=== PATIENT | male | born 1995 | race Caucasian/White ===

== ENCOUNTER 2019-07-12 09:48 | Emergency (ER) | payer OTHER ==
[2019-07-12 09:53] VITALS: BP 111/68; PULSE 80; TEMP 98.2
[2019-07-12 10:04] VITALS: RESP 16
--- NOTE | 2019-07-12 10:14 | ED ---
URI HPI - General Chief Complaint: Upper Respiratory Infection Stated Complaint: fever/cough Time Seen by Provider: 07/12/19 09:58 Source: patient, RN notes reviewed Mode of arrival: ambulatory Limitations: no limitations - History of Present Illness Initial Comments: 23-year-old male presents emergency Department chief complaint of fever cough congestion. Patient states she's had fever at home he has not taken any recent, Motrin since 3 AM this morning. Patient states he feels achy had the toe. Patient has no difficulty breathing at this time. Patient was seen by his PCP who sent him here for further evaluation possible COVID-19 testing. Patient denies any chest pain denies any neck pain or neck stiffness does complain of mild headache. Patient has no significant past medical history. Patient is not taking medications. No prior surgeries. - Related Data Allergies Allergy/AdvReac Type Severity Reaction Status Date / Time No Known Allergies Allergy Verified 07/12/19 09:53 Review of Systems ROS Statement: Those systems with pertinent positive or pertinent negative responses have been documented in the HPI. ROS Other: All systems not noted in ROS Statement are negative. Past Medical History Past Medical History: No Reported History History of Any Multi-Drug Resistant Organisms: None Reported Past Surgical History: No Surgical Hx Reported Past Psychological History: ADD/ADHD Smoking Status: Never smoker Past Alcohol Use History: None Reported Past Drug Use History: None Reported General Exam Limitations: no limitations General appearance: alert, in no apparent distress, other (Patient is in no distress. Vitals reviewed ) Head exam: Present: atraumatic, normocephalic, normal inspection Eye exam: Present: normal appearance, PERRL, EOMI. Absent: scleral icterus, conjunctival injection, periorbital swelling ENT exam: Present: normal exam, normal oropharynx, mucous membranes moist, TM's normal bilaterally Neck exam: Present: normal inspection, full ROM. Absent: tenderness, meningismus, lymphadenopathy Respiratory exam: Present: normal lung sounds bilaterally. Absent: respiratory distress, wheezes, rales, rhonchi, stridor Cardiovascular Exam: Present: regular rate, normal rhythm, normal heart sounds. Absent: systolic murmur, diastolic murmur, rubs, gallop, clicks GI/Abdominal exam: Present: soft, normal bowel sounds. Absent: distended, tenderness, guarding, rebound, rigid Neurological exam: Present: alert, oriented X3 Skin exam: Present: warm, dry, intact, normal color. Absent: rash Course Vital Signs 07/12/19 07/12/19 09:50 09:59 Temperature 98.2 F Pulse Rate 80 Respiratory 18 16 Rate Blood Pressure 111/68 O2 Sat by Pulse 99 Oximetry Medical Decision Making - Medical Decision Making Chest x-ray shows no acute changes. Patient updated on chest x-ray results patient's vitals are stable patient is in no signs of distress. Patient advised to go home and self quarantining for 14 days. He is return for any worsening symptoms. At this time no further testing is needed. Disposition Clinical Impression: Acute upper respiratory infection Disposition: HOME SELF-CARE Condition: Stable Instructions (If sedation given, give patient instructions): Upper Respiratory Infection (ED) Additional Instructions: Please return to the Emergency Department if symptoms worsen or any other concerns. Is patient prescribed a controlled substance at d/c from ED?: No Referrals: Bill Martin MD [Primary Care Provider] - 1-2 days Time of Disposition: 10:31
--- NOTE | 2019-07-12 10:23 | XR ---
EXAMINATION TYPE: XR chest 1V DATE OF EXAM: 07/12/2019 COMPARISON: None HISTORY: 23-year-old male with cough TECHNIQUE: Single frontal view of the chest is obtained. FINDINGS: There is no focal air space opacity, pleural effusion, or pneumothorax seen. The cardiac silhouette size is within normal limits. IMPRESSION: No acute process.
== END 2019-07-12 10:28 | disposition home or self-care (01) ==
LOC: EC 09:48
DX: J06.9 Acute upper respiratory infection, unspecified (principal)
CPT/HCPCS: 71045; 99283

== ENCOUNTER 2020-05-24 21:51 | Emergency (ER) | payer OTHER ==
[2020-05-24 21:57] VITALS: BP 160/75; PULSE 90; RESP 17; TEMP 98.6
--- NOTE | 2020-05-24 22:27 | ED ---
Head Injury HPI - General Chief complaint: Head Injury Stated complaint: Fell off horse 1999 Time Seen by Provider: 05/24/20 21:58 Source: patient Mode of arrival: wheelchair - History of Present Illness Initial comments: 24-year-old male presents to emergency Department with chief complaint of a head injury. Patient reports the incident occurred about 2.5 hours prior to arrival. He states that he was riding his horse when it took off, causing him to fall back and hitting his head and the wall. Patient denies any loss of consciousness but does report nausea. He denies any vomiting, gait instability, blurry vision, one-sided weakness or paresthesias.he also reports slight dizziness where the room is spinning around him but denies any lightheadedness. Denies any other injuries to the rest of his body.denies any abdominal pain, chest pain back pain. - Related Data Home Medications Medication Instructions Recorded Confirmed No Known Home Medications 05/24/20 05/24/20 Allergies/Adverse reactions: Allergies Allergy/AdvReac Type Severity Reaction Status Date / Time No Known Allergies Allergy Verified 05/24/20 21:57 Review of Systems ROS Statement: Those systems with pertinent positive or pertinent negative responses have been documented in the HPI. ROS Other: All systems not noted in ROS Statement are negative. Past Medical History Past Medical History: No Reported History History of Any Multi-Drug Resistant Organisms: None Reported Past Surgical History: No Surgical Hx Reported Past Psychological History: ADD/ADHD Smoking Status: Never smoker Past Alcohol Use History: None Reported Past Drug Use History: None Reported General Exam Limitations: no limitations General appearance: alert, in no apparent distress Head exam: Present: atraumatic (small scalp hematoma on the forehead), normocephalic, normal inspection. Absent: other (negative Bello sign, raccoon eyes, hemotympanum.) Eye exam: Present: normal appearance, PERRL, EOMI Pupils: Present: normal accommodation ENT exam: Present: normal exam, normal oropharynx, mucous membranes moist Neck exam: Present: normal inspection, full ROM. Absent: tenderness Respiratory exam: Present: normal lung sounds bilaterally. Absent: respiratory distress Cardiovascular Exam: Present: regular rate, normal rhythm, normal heart sounds GI/Abdominal exam: Present: soft. Absent: distended, tenderness, guarding Extremities exam: Present: normal inspection, full ROM Back exam: Present: normal inspection, full ROM Neurological exam: Present: alert, oriented X3, normal gait Psychiatric exam: Present: normal affect, normal mood Skin exam: Present: warm, dry, intact, normal color Course Vital Signs 05/24/20 21:55 Temperature 98.6 F Pulse Rate 90 Respiratory 17 Rate Blood Pressure 160/75 O2 Sat by Pulse 98 Oximetry Medical Decision Making - Medical Decision Making 24-year-old male presents to the emergency department with a chief complaint of head injury. on Physical examination, patient has a small scalp hematoma on the forehead. The rest of physical exam is unremarkable. No tenderness in the extremities, spinal column abdomen or chest. patient is otherwise resting comfortably in bed with minimal discomfort. CT of the brain and C-spine reveals no acute intracranial hemorrhage, fractures, dislocations or midline shift. I discussed suspect a possible concussion. Concussion protocol discussed with patient. Return parameters were thoroughly discussed the patient was understanding and agreeable. Case discussed with physician. Disposition Clinical Impression: Hematoma of scalp, Head injury Disposition: HOME SELF-CARE Condition: Stable Instructions (If sedation given, give patient instructions): Concussion (ED) Additional Instructions: alternate between Tylenol and Motrin for pain control. Rest for the next few days. Return to emergency department if symptoms worsen. Is patient prescribed a controlled substance at d/c from ED?: No Referrals: Bill Martin MD [Primary Care Provider] - 1-2 days Time of Disposition: 22:46
--- NOTE | 2020-05-24 22:42 | CT ---
EXAMINATION TYPE: CT brain cspine wo con DATE OF EXAM: 05/24/2020 COMPARISON: None HISTORY: Fall from horse injury CT DLP: 1442 mGycm Automated exposure control for dose reduction was used. Images obtained of the brain and cervical spine without contrast. Ventricles and sulci appear normal. There is no mass effect nor midline shift. There is no sign of in tracranial hemorrhage. The calvarium is intact. Cervical vertebra have normal spacing and alignment. Posterior elements are intact. Prevertebral soft tissues appear normal. Facet joints appear normal. Occipital bone is intact. There is normal aeratio n of the mastoid sinuses. IMPRESSION: Normal CT scan of the brain. Normal CT scan of the cervical spine.
== END 2020-05-24 22:56 | disposition home or self-care (01) ==
LOC: EC 21:51
DX: S00.03XA Contusion of scalp, initial encounter (principal); V80.010A Animal-rider injured by fall from or being thrown from horse in noncollision accident, initial encounter; Y93.52 Activity, horseback riding
CPT/HCPCS: 70450; 72125; 99283